=== PATIENT | male | born 1970 | race Asian ===

== ENCOUNTER 2019-11-13 07:15 | Outpatient (CLI) | payer OTHER ==
--- NOTE | 2019-11-13 08:58 | ULT ---
ABDOMINAL ULTRASOUND: HISTORY: Abdominal pain and reflux. FINDINGS: Real-time imaging in the upper abdomen demonstrates a normal-appearing gallbladder. The common duct is 3 mm. The liver measures 15.3 cm in length and shows no focal abnormalities. The spleen is henrik l in size at 9.7 cm. Right and left kidneys are normal in size. They are not obstructed. The pancreas is partially obscured. The abdominal aorta and IVC regions appear unremarkable. IMPRESSION: Unremarkable abdomen ultrasound. POS: [facility]
== END 2019-11-13 07:16 | disposition home or self-care (01) ==
LOC: BICULT 07:15
PROVIDERS: ATTEND Internal Medicine
DX: R10.13 Epigastric pain (principal)
CPT/HCPCS: 93975